=== PATIENT | male | born 1995 | race Two or more races ===

== ENCOUNTER 2020-03-02 13:09 | Outpatient (REF) | payer OTHER, SELFPAY | END 2020-03-02 13:10 | disposition home or self-care (01) | LOC: HO.LAB 13:09 | PROVIDERS: Visit Provider Internal Medicine | DX: Z20.828 Contact with and (suspected) exposure to other viral communicable diseases (principal) | CPT/HCPCS: C9803; U0003 ==

== ENCOUNTER 2021-08-24 12:32 | Outpatient (REF) | payer MEDICAID, SELFPAY ==
[2021-08-24 12:55] LABS: MANUAL DIFF FLAG NO
[2021-08-24 13:18] LABS: Basophils Percent Auto 0.4 % (0-2); Eosinophils Absolute Auto 0.2 X10*3/uL (0.0-0.4); Eosinophils Percent Auto 1.8 % (0-4); Hematocrit 40.1 % (42.0-52.0); Imm Gran Abs Auto 0.06 X10*3/uL (0.00-0.03); Imm Gran Pct Auto 0.6 % (0.0-0.4); Lymphocytes Absolute Auto 2.5 X10*3/uL (1.2-4.9); Mean Corpuscular HGB Conc 32.4 g/dl (31.0-36.0); Mean Corpuscular Hemoglobin 27.9 pg (27.0-33.0); Mean Corpuscular Volume 86.1 fL (80.0-98.0); Mean Platelet Volume 10.1 fL (9.4-12.4); Monocytes Absolute Auto 0.5 X10*3/uL (0.1-1.2); Monocytes Percent Auto 4.7 % (2-11); Neutrophils Absolute Auto 6.7 x10*3/uL (2.0-8.3); Neutrophils Percent Auto 67.5 % (45-73); Platelet Count 228 X10*3/uL (160-400); Red Blood Count 4.66 X10*6/uL (4.60-5.80); White Blood Count 9.9 X10*3/uL (4.8-10.8)
[2021-08-24 13:43] LABS: Alanine Aminotransferase 53 U/L (0-40); Albumin Level 3.8 g/dL (3.5-5.0); Alkaline Phosphatase 55 U/L (39-117); Anion Gap 12 (12-20); Aspartate Amino Transferase 29 U/L (5-37); Bilirubin Total 0.9 mg/dL (0.0-1.0); Blood Urea Nitrogen 9 mg/dL (9-16); Calcium 9.2 mg/dL (8.4-10.2); Carbon Dioxide 28 mmol/L (22-29); Chloride 104 mmol/L (96-108); Cholesterol 145 mg/dL; Estimated Glomerular Filt Rate > 60; Glucose Fasting 92 mg/dL (60-99); HDL Cholesterol 33 mg/dL; LDL Cholesterol Calculated 82 mg/dl; Potassium 4.3 mmol/L (3.3-5.1); Sodium 140 mmol/L (135-145); Total Protein 7.6 g/dL (6.5-8.0); Triglycerides 152 mg/dL
[2021-08-24 13:59] LABS: T4 Thyroxine 7.1 ug/dL (4.5-12.0); Thyroid Stimulating Hormone 1.64 uIU/mL (0.32-4.0)
[2021-08-28 11:11] LABS: Testosterone, Total 38 ng/dL (250-1100)
== END 2021-08-24 12:33 | disposition home or self-care (01) ==
LOC: HO.LAB 12:32
PROVIDERS: PCP Internal Medicine; Visit Provider Internal Medicine
DX: Z00.00 Encounter for general adult medical examination without abnormal findings (principal); R53.83 Other fatigue
CPT/HCPCS: 36415; 80053; 80061; 84403; 84436; 84443; 85025

== ENCOUNTER 2023-02-03 10:48 | Outpatient (AMB) | payer MEDICAID, SELFPAY ==
--- NOTE | 2023-02-03 10:50 | A.OFFVIS_ITS ---
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 02/03/2023-- He presents today for an evaluation of hypogonadism. CoMorbidity - Obesity. He was referred to the urology office by Dr. Constantino. I reviewed the blood work results from 08/24/2021 revealed total testosterone was 38. He does admit to fatigue. Patient states that he is exercising daily for 30 minutes to an hour. He does some cardio treadmill and also weight lifting. He states that he fell few days ago and has not been able to exercise. He denies any erectile dysfunction. IIEF-5 score 22, consistent with no erectile dysfunction.He denies any urinary symptoms. Plan: Ordered blood work including TSH, FSH, Free and total testosterone SHBG Prolactin lipid panel glucose fasting LH and albumin level. Follow-up in 5 weeks. [facility], [facility] Medical History (Updated 02/03/23 @ 11:53 by Izaiah Zavala MD) Eczema Hypogonadism in male Surgical History Hx of tonsillectomy History of appendectomy Family History Father No problems noted. Mother Motor vehicle accident with significant injury No family history of cancer Sister Weight disorder Social History Alcohol intake: current Alcohol intake frequency: holidays/special occasions only Patient Tobacco Use Status: Never used Tobacco Review of Systems Const All systems reviewed & are unremarkable except as noted in HPI and below Reports no additional complaints Eyes Reports no additional complaints ENT Reports no additional complaints Card Denies dyspnea Resp Denies cough and Denies dyspnea GI Reports no additional complaints Musc Reports no additional complaints Skin/Breast Denies rash and Denies unusual bruising Neuro Reports no additional complaints Psych Reports no additional complaints Endo Reports no additional complaints Yasmany/Lymph Reports no additional complaints Aller/Immun Reports no additional complaints Physical Exam Const General: healthy appearing, no acute distress and well developed Orientation/consciousness: patient oriented x3 HEENT Head: Yes normocephalic and Yes atraumatic Eyes Conjunctivae: conjunctivae normal Neck Neck: Yes normal visual inspection Chest Chest palpation & inspection: normal inspection of the chest Resp Effort & Inspection: normal respiratory effort Cardio Rate: regular rate GI Inspection: Yes normal to inspection Skin General skin exam: no rashes or lesions noted Neuro General: patient oriented x3 Extrem General: No pedal edema Psych Appearance: grossly normal Affect: normal affect Assessment & Plan Assessment & Plan (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 Follow-up in 5 weeks. Orders: Orders Lipid Panel Today E29.1 - Testicular hypofunction, E66.8 - Other obesity Prolactin Today E29.1 - Testicular hypofunction, E66.8 - Other obesity Sex Hormone Binding Globulin Today E29.1 - Testicular hypofunction, E66.8 - Other obesity Testosterone, Free/Total Today E29.1 - Testicular hypofunction, E66.8 - Other obesity Follicle Stimulating Hormone Today E29.1 - Testicular hypofunction, E66.8 - Other obesity Albumin Level Today E29.1 - Testicular hypofunction, E66.8 - Other obesity Lutenizing Hormone Today E29.1 - Testicular hypofunction, E66.8 - Other obesity Glucose Fasting Today E29.1 - Testicular hypofunction, E66.8 - Other obesity TSH reflex Free T4 Today E29.1 - Testicular hypofunction, E66.8 - Other obesity Patient Instructions: The patient had an opportunity to ask questions regarding treatment plan. All questions were answered. Imaging, Laboratory studies and physical exam results were discussed and reviewed in detail. No major barriers to understanding were identified. The patient expressed understanding and agreement with the above treatment plan. The patient is aware they should contact our office by phone for worsening of their current condition or the appearance of new symptoms. Compliance is encouraged with any medications and followup testing that is ordered. It is a privilege to be allowed the opportunity to participate in the urologic care of your patient. If you have any questions or concerns regarding treatment for the above conditions please do not hesitate to contact me. The office telephone contact is [phone]. This note is constructed in part using voice recognition software. While every effort has been made to ensure accuracy embalmer assistant errors may have been included. Yours sincerely, Izaiah Zavala MD Coding Level of Care Code New Pt Level 3 (37269) Diagnoses Hypogonadal obesity E66.8 Hypogonadism in male E29.1
== END 2023-02-03 11:55 | disposition home or self-care (01) ==
PROVIDERS: PCP Internal Medicine; Visit Provider Urology
DX: E66.8 Other obesity (principal); E29.1 Testicular hypofunction
CPT/HCPCS: 99203

== ENCOUNTER → 2023-02-03 10:48 | Outpatient (BNVA) | payer MEDICAID, SELFPAY | PROVIDERS: PCP Internal Medicine; Visit Provider Urology | DX: E66.8 Other obesity (principal); E29.1 Testicular hypofunction | CPT/HCPCS: 99202 ==

== ENCOUNTER → 2023-03-09 10:05 | Outpatient (BNVA) | payer MEDICAID, SELFPAY | PROVIDERS: PCP Internal Medicine; Visit Provider Urology ==

== ENCOUNTER 2023-03-21 10:13 | Outpatient (REF) | payer MEDICAID, SELFPAY ==
[2023-03-21 11:20] LABS: Albumin Level 3.8 g/dL (3.5-5.0); Cholesterol 142 mg/dL (<200); Glucose Fasting 134 mg/dL (60-99); HDL Cholesterol 32 mg/dL (>40); LDL Cholesterol Calculated 75 mg/dL (<100); Triglycerides 176 mg/dL (<150)
[2023-03-21 11:35] LABS: TSH reflex Free T4 2.56 uIU/mL (0.32-4.0)
[2023-03-22 08:43] LABS: Lutenizing Hormone 1.4 mIU/mL (1.5-9.3); Prolactin 5.5 ng/mL (2.0-18.0); Sex Hormone Binding Globulin 7 nmol/L (10-50)
[2023-03-26 13:18] LABS: Testosterone, Free 6.9 pg/mL (35.0-155.0); Testosterone, Total 23 ng/dL (250-1100)
== END 2023-03-21 10:14 | disposition home or self-care (01) ==
LOC: HO.LAB 10:13
PROVIDERS: PCP Internal Medicine; Visit Provider Urology
DX: E66.8 Other obesity (principal); E29.1 Testicular hypofunction
CPT/HCPCS: 36415; 80061; 82040; 82947; 83001; 83002; 84146; 84270; 84402; 84403; 84443

== ENCOUNTER 2024-01-30 10:56 | Emergency (ER) | payer MEDICAID, SELFPAY ==
[2024-01-30 12:03] VITALS: BP 130/57; PULSE 106; RESP 18; TEMP 36.5; O2SAT 93; BMI 49.4
--- NOTE | 2024-01-30 12:03 | ED_ITS ---
[facility] - General Adult General Chief complaint: Dizziness Stated complaint: Dizziness Time Seen by Provider: 01/30/24 16:18 Source: patient Mode of arrival: ambulatory History of Present Illness HPI narrative: This is a 28-year-old man with a past medical history of hypogonadism presents for evaluation of dizziness and nausea. Patient reports that he woke up this morning and felt lightheaded. Patient reports no syncope. Patient reports that his lightheadedness is worse when he stands up. He states associated nausea without vomiting. He states no chest pain or dyspnea. He states no fevers. He states no urinary symptoms or changes in bowel habits. Patient states decreased appetite, but states being able to eat and drink without difficulty. He states no head trauma. He states no headache or neck pain. He states no extremity paresthesias. He states no vision loss. He states no speech changes or hearing changes. He states no urinary symptoms. Related Data Home Medications ?Medication ?Instructions ?Recorded ?Confirmed ketoconazole 2 % shampoo topical 3XW 12/07/22 triamcinolone acetonide 0.1 % 1 appl topical BID 12/07/22 topical cream Allergies Allergy/AdvReac Type Severity Reaction Status Date / Time No Known Allergies Allergy Verified 01/30/24 12:04 Review of Systems 2 Review of Systems: ROS as per [facility] Past Medical History Medical History (Updated 01/30/24 @ 19:18 by Parish Serna MD) Eczema Hypogonadism in male Surgical History Hx of tonsillectomy History of appendectomy Family History Family History Father No problems noted. Mother Motor vehicle accident with significant injury No family history of cancer Sister Weight disorder Social History Social History Alcohol intake: current Alcohol intake frequency: holidays/special occasions only Patient Tobacco Use Status: Never used Tobacco Smoked in Last 30 Days: No Use of substances other than those prescribed or required for medical reasons: No Advance Directives: No Advance Directives Information Provided: Yes Physical Exam ED Vital Signs: Vital Signs - 24 hr 01/30/24 12:03 01/30/24 16:00 01/30/24 18:00 Temperature 97.7 F Pulse Rate 106 H 108 H 100 Respiratory Rate 18 16 16 Blood Pressure 130/57 L 110/68 117/71 Pulse Oximetry 93 94 96 Oxygen Delivery Method Room Air Room Air Room Air BMI result Body Mass Index 49.4 Gen: NAD, AOx3 HEENT: NCAT, EOMI, normal conjunctiva CV: RRR Pulm: CTAB, no increased work of breathing GI: Soft, NTND, no rebound, guarding or rigidity Neuro: GCS 15, CN 2-12 intact, no dysmetria, no dysdiadochokinesia, 5/5 strength in bilateral upper and lower extremities, sensation intact to light touch in bilateral upper and lower extremities Course Course Course Narrative: This is a rapid medical exam performed by Maverick Kahn NP: Additional HPI, ROS, PE not included below will be deferred to primary provider. Patient is a 28-year-old male presenting with dizziness and nausea since this morning, worse with head movements. Plan: EKG, viral serology Medications Administered Discontinued Medications Generic Name Dose Route Start Last Admin Trade Name Freq PRN Reason Stop Dose Admin Sodium Chloride 1,000 mls @ 999 mls/hr 01/30/24 16:45 01/30/24 17:39 Ns IV 01/30/24 17:45 999 mls/hr .Q1H1M MARLY Administration Ondansetron HCl 4 mg 01/30/24 16:32 01/30/24 17:40 Ondansetron Hcl 4 Mg/2 Ml Vial IVPUSH 01/30/24 16:33 4 mg ONCE ONE Administration Medical Decision Making Medical Decision Making MDM Narrative: Differential diagnosis includes, but is not limited to presyncope, arrhythmia, dehydration, acute kidney injury, electrolyte abnormality. Patient is afebrile and hemodynamically stable on room air. Exam is benign and reassuring. NIHSS 0. I reviewed interpreted patient's labs and EKG as below. There are no concerning electrocardiographic morphology is to suggest underlying conduction abnormality. LEs, there is low clinical suspicion for arrhythmia. Patient has treat supportively here emergency room with IV fluids and Zofran. On re-examination, patient is well-appearing and in no acute distress. ?I discussed the patient's abnormal blood work and need for close outpatient follow up. Patient states symptoms have resolved. ?There is no indication for further emergent evaluation in this otherwise well-appearing patient as above. ?Patient is provided written and verbal instructions, educational materials, recommendations for outpatient follow-up, strict return precautions and teach back is performed. ?Patient states understanding and agreement with plan of care. ?Patient is discharged home in stable and improved condition. Admission/Observation Consideration of admission/observation: Escalation of care including admission/observation considered Lab Data MDM Lab Attestation statement: I reviewed the patient's lab results. I independently reviewed and interpreted the patient's CBC, metabolic panel and viral testing. CBC demonstrates chronic stable anemia with hemoglobin 12.9 (previous 13.0), metabolic panel is notable for mild transaminitis with AST of 106 and ALT of 132 (previous ALT 53). Patient has negative for COVID-19, influenza and RSV. 01/30/24 12:13 01/30/24 12:13 Labs: Lab Results 01/30/24 Range/Units 12:13 WBC 10.7 (4.8-10.8) X10*3/uL RBC 4.71 (4.60-5.80) X10*6/uL Hgb 12.9 L (14.0-18.0) g/dl Hct 39.4 L (42.0-52.0) % MCV 83.7 (80.0-98.0) fL MCH 27.4 (27.0-33.0) pg MCHC 32.7 (31.0-36.0) g/dl RDW 15.4 (11.0-16.0) % Plt Count 199 (160-400) X10*3/uL MPV 9.8 (9.4-12.4) fL Immature Gran % (Auto) 0.9 H (0.0-0.4) % Neut % (Auto) 74.0 H (45-73) % Lymph % (Auto) 18.0 L (20-40) % Castro % (Auto) 4.7 (2-11) % Eos % (Auto) 2.1 (0-4) % Baso % (Auto) 0.3 (0-2) % Lymph # (Auto) 1.9 (1.2-4.9) X10*3/uL Castro # (Auto) 0.5 (0.1-1.2) X10*3/uL Eos # (Auto) 0.2 (0.0-0.4) X10*3/uL Baso # (Auto) 0.0 (0.0-0.2) X10*3/uL Abs Immat Gran (auto) 0.10 H (0.00-0.03) X10*3/uL Absolute Neuts (auto) 7.9 (2.0-8.3) x10*3/uL Absolute Nucleated RBC 0.000 (0.0-0.012) X10*3/uL Nucleated RBC % (auto) 0.0 (0.0-0.2) /100WBC Sodium 139 (135-145) mmol/L Potassium 4.2 (3.3-5.1) mmol/L Chloride 102 (96-108) mmol/L Carbon Dioxide 24 (22-29) mmol/L Anion Gap 17 (12-20) BUN 10 (9-16) mg/dL Creatinine 0.76 (0.5-1.4) mg/dL Estim Creat Clear Calc 177.9 Estimated GFR > 60 Random Glucose 181 H (60-115) mg/dL Calcium 9.6 (8.4-10.2) mg/dL Magnesium 1.8 (1.6-2.6) mg/dL Total Bilirubin 0.8 (0.0-1.0) mg/dL AST 106 H (5-37) U/L ALT 132 H (0-40) U/L Alkaline Phosphatase 63 (39-117) U/L Total Protein 8.4 H (6.5-8.0) g/dL Albumin 3.8 (3.5-5.0) g/dL Influenza Type A (PCR) NEGATIVE (Negative) Influenza Type B (PCR) NEGATIVE (Negative) RSV RNA Qual (PCR) NEGATIVE (Negative) SARS-CoV-2 RNA (RT-PCR) NEGATIVE (Negative) Independent Interpretation I performed an independent interpretation of an: EKG Interpretation: I independently reviewed and interpreted the patient's EKG, which demonstrates a sinus tachycardia at 106 beats per minute, NC 124, QRS 96, QTC 470, no Brugada morphology, no epsilon wave, no dagger-like Q-waves, no delta wave, no STEMI Discharge Plan Discharge Clinical Impression: Pre-syncope Patient Disposition: Home, Self-Care Instructions: Near Syncope (ED) Additional Instructions: You were seen and evaluated in the emergency room. Your vital signs initially showed mildly elevated heart rate and blood pressure, but this resolved prior to your discharge. Your blood work was notable for mildly elevated glucose of 181, mildly elevated liver enzymes with an AST of 106 and an ALT of 132. Your EKG was normal. You tested negative for COVID-19, influenza and RSV. You are safe to be discharged from the emergency room and continue to follow up with your primary care doctors. Please call your primary care doctor tomorrow to schedule a follow-up appointment in the next 1-2 weeks. Return to the emergency room with any new or concerning symptoms. Prescriptions: No Action ketoconazole 2 % shampoo topical 3XW triamcinolone acetonide 0.1 % cream 1 appl topical BID Print Language: Lao
--- NOTE | 2024-01-30 12:04 | ECG_ITS ---
Test Reason : dizziness Blood Pressure : / mmHG Vent. Rate : 106 BPM Atrial Rate : 106 BPM P-R Int : 124 ms QRS Dur : 096 ms QT Int : 354 ms P-R-T Axes : 039 -05 028 degrees QTc Int : 470 ms Sinus tachycardia with Premature atrial complexes Minimal voltage criteria for LVH, may be normal variant ( R in aVL ) Borderline ECG When compared with ECG of 26-AUG-2015 04:00, Premature atrial complexes are now Present Referred By: Mildred Kahn Electronically Signed By:LUISANA DAVALOS MD
[2024-01-30 12:19] LABS: MANUAL DIFF FLAG NO
[2024-01-30 12:23] LABS: Basophils Percent Auto 0.3 % (0-2); Eosinophils Absolute Auto 0.2 X10*3/uL (0.0-0.4); Eosinophils Percent Auto 2.1 % (0-4); Hematocrit 39.4 % (42.0-52.0); Hemoglobin 12.9 g/dl (14.0-18.0); Imm Gran Pct Auto 0.9 % (0.0-0.4); Lymphocytes Absolute Auto 1.9 X10*3/uL (1.2-4.9); Mean Corpuscular HGB Conc 32.7 g/dl (31.0-36.0); Mean Corpuscular Hemoglobin 27.4 pg (27.0-33.0); Mean Corpuscular Volume 83.7 fL (80.0-98.0); Mean Platelet Volume 9.8 fL (9.4-12.4); Monocytes Absolute Auto 0.5 X10*3/uL (0.1-1.2); Monocytes Percent Auto 4.7 % (2-11); Neutrophils Absolute Auto 7.9 x10*3/uL (2.0-8.3); Platelet Count 199 X10*3/uL (160-400); Red Blood Count 4.71 X10*6/uL (4.60-5.80); Red Cell Distribution Width 15.4 % (11.0-16.0); White Blood Count 10.7 X10*3/uL (4.8-10.8)
[2024-01-30 12:40] LABS: Alanine Aminotransferase 132 U/L (0-40); Albumin Level 3.8 g/dL (3.5-5.0); Alkaline Phosphatase 63 U/L (39-117); Anion Gap 17 (12-20); Aspartate Amino Transferase 106 U/L (5-37); Bilirubin Total 0.8 mg/dL (0.0-1.0); Blood Urea Nitrogen 10 mg/dL (9-16); Calcium 9.6 mg/dL (8.4-10.2); Carbon Dioxide 24 mmol/L (22-29); Chloride 102 mmol/L (96-108); Creatinine Clr Calc Pharmacy 177.9; Estimated Glomerular Filt Rate > 60; Glucose Random 181 mg/dL (60-115); Magnesium 1.8 mg/dL (1.6-2.6); Potassium 4.2 mmol/L (3.3-5.1); Sodium 139 mmol/L (135-145); Total Protein 8.4 g/dL (6.5-8.0)
[2024-01-30 13:05] LABS: Influenza A PCR NEGATIVE (Negative); Influenza B PCR NEGATIVE (Negative); Resp Syncy Virus RNA Qual PCR NEGATIVE (Negative); SARS COV2 PCR INHOUSE NEGATIVE (Negative)
[2024-01-30 16:00] VITALS: BP 110/68; PULSE 108; RESP 16; O2SAT 94
[2024-01-30] MEDS: 0.9 % Sodium Chloride 1,000 ML 999 ML IV (17:39)
[2024-01-30] MEDS: ondansetron HCL 4 MG/2 ML VIAL IVPUSH (17:40)
[2024-01-30 18:00] VITALS: BP 117/71; PULSE 100; RESP 16; O2SAT 96
[2024-01-30 19:35] VITALS: BP 111/63; PULSE 99; RESP 20; TEMP 36.6; O2SAT 97
== END 2024-01-30 19:35 | disposition home or self-care (01) ==
PROVIDERS: Registered Nurse Emergency; Emergency Provider Emergency Medicine; PCP Internal Medicine
DX: R55 Syncope and collapse (principal); R42 Dizziness and giddiness; R00.0 Tachycardia, unspecified; Z79.899 Other long term (current) drug therapy; Z03.818 Encounter for observation for suspected exposure to other biological agents ruled out
CPT/HCPCS: 0241U; 80053; 83735; 85025; 93005; 96374; 99284; J2405

== ENCOUNTER → 2024-01-30 12:04 | Outpatient (BNV) | payer MEDICAID, SELFPAY | PROVIDERS: Emergency Provider Emergency Medicine; PCP Internal Medicine; Visit Provider Internal Medicine Cardiovascular Disease | DX: R42 Dizziness and giddiness (principal); R00.0 Tachycardia, unspecified; R94.31 Abnormal electrocardiogram [ECG] [EKG] | CPT/HCPCS: 93010 ==

== ENCOUNTER 2025-01-10 13:43 | Outpatient (REF) | payer MEDICAID, SELFPAY ==
--- OUTSIDE RECORDS SUMMARY | 2025-01-10 13:00 | XMS_ITS | Encounter Summary ---
Author Organization [employer] Address [address] [facility] [address] [place] [address] Care Team Providers Care Entry Analyst Name Role Phone Jazzmine Dockery MD Primary Care Provider [phone] Reason for Visit * Reason Comments new pt Encounter Details Date Type Department Care Team (Late st Contact Info) Description 01/10/2025 1:00 PM EDT Office Visit [facility] MEDICINE [address] [place] [address] Jazzmine Dockery MD [address] [place] [address] Class 3 severe obesity without serious comorbidity with body mass index (BMI) of 45.0 to 49.9 in adult, unspecified obesity type (HCC) (Primary Dx); Dietary counseling; Exercise counseling; Encounter for immunization; Chronic tension-type headache, not intractable Social History Tobacco Use Types Packs/Day Years Used Date Smoking Tobacco: Never Smokeless Tobacco: Never Tobacco Cessation:Counseling Given: Not Answered Alcohol Use Standard Drinks/Week Comments Never 0 (1 standard drink = 0.6 oz pur e alcohol) Depression Answer Date Recorded Patient Health Questionnaire-9 Score 4 01/10/2025 Patient Health Questionnaire-9 Score 4 01/10/2025 Last PHQ-9: Questionnaire Data Not on file 1 Housing Stability Answer Date Recorded What is your housing situation today? I have bharti mena 01/01/[address] you li ve. Do you have problems with any of the following? None of the above 01/01/2025 Food Insecurity Answer Date Recorded Within the past 12 months, y ou worried that your food would run out before you got money to buy more: Never True 01/01/2025 Within the past 12 months,th e food you bought just didn't last and you didn't have enough money to get more: Never True 10/2024 Transportation Answer Date Recorded In the past 12 months, has l ack of transportation kept you from medical appts, meetings, work or from getting things needed for daily living? No 01/01/2025 Intimate Partner Violence Answer Date R ecorded Within the last year, have y ou been afraid of your partner or ex-partner? 2 01/10/2025 Within the last year, have y ou been humiliated or emotionally abused in other ways by your partner or ex-partner? 2 Within the last year, have y ou been kicked, hit, slapped, or otherwise physically hurt by your partner or ex-partner? 2 01/10/2025 Within the last year, have y ou been raped or forced to have any kind of sexual activity by your partner or ex-partner? 2 01/10/2025 Utilities Answer Date Recorded In the past 12 months, has t he [employer], gas, oil or water company threatened to shut off services in your home? No 01/01/2025 Depression Answer Date Recorded Patient Health Questionnaire-2 Score 0 01/10/2025 Internet Access Answer Date Recorded Internet Access Q1 Yes 01/01/2025 Internet Access Q2 Not on file 01/01/2025 Sex and Gender Information Value Date Recorded Sex Assigned at Male 12/13/2024 9:24 AM EDT Legal Sex Male 11:12 AM EDT Gender Identity Male 12/13/2024 9:24 AM EDT Sexual Orientation Choose not to disclose 2024 9:24 AM EDT documented as of this encounter Last Filed Vital Signs Vital Sign Reading Time Taken Comments Blood Pressure 118/72 01/10/2025 1:03 PM EDT Pulse 68 01/10/2025 1:03 PM EDT Temperature 37.1 C (98.7 F) 01/10/2025 1:03 PM EDT Respiratory Rate 20 01/10/2025 1:03 PM EDT Oxygen Saturation - - Inhaled Oxygen Concentration - - Weight 130 kg (285 lb 12.8 oz) 01/10/2025 1:03 P M EDT Height 162.6 cm (5' 4 ) 01/10/2025 1:03 PM EDT Body Mass Index 49.06 01/10/2025 1:03 PM EDT documented in this encounter Functional Status * Over the past 2 weeks, how often have you been bothered by any of the following problems? Question Answer Date of Assessment Author Patient Health Questionnaire -2 Score 0 01/10/2025 1:05 PM EDT Jennifer Conde MA * Little interest or pleasure in doing things Answer Date of Assessment Author Not at all 01/10/2025 1:05 PM EDT Jennifer Conde MA * Feeling down, depressed, or hopeless Answer Date of Assessment Author Not at all 01/10/2025 1:05 PM FERNYT Jennifer Conde MA * Trouble falling or staying asleep, or sleeping too much Answer Date of Assessment Author Several days 01/10/2025 1:05 PM FERNYT Jennifer Conde MA * Feeling tired or having little energy Answer Date of Assessment Author Several days 01/10/2025 1:05 PM FERNYT Jennifer Conde MA * Poor appetite or overeating Answer Date of Assessment Author Several days 01/10/2025 1:05 PM Jennifer Caruso MA * Feeling bad about yourself - or that you are a failure or have let yourself or your family down Answer Date of Assessment Author Not at all 01/10/2025 1:05 PM Jennifer Caruso MA * Trouble concentrating on things, such as reading the newspaper or watching television Answer Date of Assessment Author Several days 01/10/2025 1:05 PM Jennifer Caruso MA * Moving or speaking so slowly that other people could have noticed? Or the opposite - being so fidgety or restless that you have been moving around a lot more than usual. Answer Date of Assessment Author Not at all 01/10/2025 1:05 PM Jennifer Caruso MA * Thoughts that you would be better off or hurting yourself in some way Answer Date of Assessment Author Not at all 01/10/2025 1:05 PM Jennifer Caruso MA * Patient Health Questionnaire-9 Score Answer Date of Assessment Author 4 01/10/2025 1:05 PM Jennifer Caruso MA * How difficult have these problems made it for you to do your work, take care of things at home, or get along with other people? Answer Date of Assessment Author Not difficult at all 01/10/2025 1:05 PM EDT Jennifer Almonte MA * Over the last 2 weeks, how often have you been bothered by any of the following problems? Question Answer Date of Assessment Author Feeling nervous, anxious, or on edge 0 01/10/2025 1:05 PM EDT Jennifer Conde MA Not being able to stop or co ntrol worrying 1 01/10/2025 1:05 PM EDT Jennifer Conde MA Worrying too much about diff erent things 1 01/10/2025 1:05 PM EDT Jennifer Conde MA Trouble relaxing 0 01/10/2025 1:05 PM EDT Jennifer Willis MA Being so restless that it is hard to sit still 0 01/10/2025 1:05 PM EDT Jennifer Conde MA Becoming easily annoyed or irritable 0 01/10/2025 1:05 PM EDT Jennifer Conde MA Feeling afraid as if somethi ng awful might happen 0 01/10/2025 1:05 PM EDT Jennifer Conde MA GOPI-7 Total Score 2 01/10/2025 1:05 PM FERNYT Jennifer Conde MA documented as of this encounter Progress Notes * Jazzmine Dockery MD - 01/10/2025 1:00 PM EDT SUBJECTIVE: Delroy Otero is a 29 y.o. male who presents for chronic disease management. Denies recent illness, ER visit, or hospitalization. Accompanied by Acute Concerns: Headaches - History of headaches severe enough to wake from sleep - Able to return to sleep after taking loratadine, but only partially - Sometimes experiences difficulty focusing vision during headaches, especially while working - No congestion or post-nasal drip associated with headaches - No changes in hearing during headaches - No history of chronic medical issues diagnosed by previous doctors related to headaches - No prior lab work or eye exam specifically for headaches Chronic Conditions and Plans: Asthma - History of asthma as a child, symptoms have abated since then - Unable to recall last use of asthma medication or inhaler Psoriasis/Eczema - Reports skin rash, believes it to be psoriasis - Rash present on knees and a large patch on back - Also experiences bumps related to hair follicles, sometimes around ears and back of neck - Uses CeraVe moisturizer for skin symptoms - No prior allergy testing Fatigue - Reports feeling tired more often - Sometimes wakes up at night and falls asleep while sitting - Feels tired upon waking in the morning Low Testosterone Concern - Previous physician indicated possible low testosterone based on blood work performed months ago - Unable to obtain records due to missed appointment and difficulty with scheduling during a severeweather event - Uncertain about symptoms of low testosterone, but reports increased fatigue - No reported difficulty achieving or maintaining erection - No reported development of breast tissue - Uncertain about changes in anger or irritability Surgical History Relevant to Present Illness - Appendectomy performed at age 16-17 years - [place] teeth removal at age 28 years Unemployed currently Sleeping ok most of the time Misc - Occasional marijuana use, obtained from dispensary - Denies tobacco use, vaping, chewing, or use of synthetic drugs - Family history of carpal tunnel syndrome Patient Active Problem List Diagnosis Date Noted Class 3 severe obesity without serious comorbidity with body mass index (BMI) of 45.0 to 49.9 in adult (HCC) 01/10/2025 Chronic tension-type headache, not intractable 01/10/2025 Surgical History[1] Social History Social History Narrative Not on file Review of Systems Constitutional: Negative. HENT: Negative. Respiratory: Positive for shortness of breath. Cardiovascular: Negative. Gastrointestinal: Negative. Musculoskeletal: Negative. Skin: Positive for rash. OBJECTIVE: Vitals: 01/10/25 1303 BP: 118/72 BP Location: Left arm Patient Position: Sitting BP Cuff Size: Large adult Pulse: 68 Resp: 20 Temp: 98.7 ??F (37.1 ??C) TempSrc: Oral Weight: 285 lb 12.8 oz (130 kg) Height: 5' 4 (1.626 m) Physical Exam Vitals and nursing note reviewed. Constitutional: Appearance: Normal appearance. He is normal weight. HENT: Head: Normocephalic and atraumatic. Right Ear: Tympanic membrane, ear canal and external ear normal. Left Ear: Tympanic membrane, ear canal and external ear normal. Nose: Nose normal. Mouth/Throat: Mouth: Mucous membranes are moist. Pharynx: Oropharynx is clear. Eyes: Extraocular Movements: Extraocular movements intact. Conjunctiva/sclera: Conjunctivae normal. Pupils: Pupils are equal, round, and reactive to light. Cardiovascular: Rate and Rhythm: Normal rate and regular rhythm. Pulses: Normal pulses. Heart sounds: Normal heart sounds. Pulmonary: Effort: Pulmonary effort is normal. Breath sounds: Normal breath sounds. Musculoskeletal: General: Normal range of motion. Cervical back: Normal range of motion and neck supple. Skin: General: Skin is warm and dry. Capillary Refill: Capillary refill takes less than 2 seconds. Findings: Rash present. Comments: Efrem derm around nose, ears, back of neck Raised hyperpgimented patches on elbows Mild folliculitis on arms Neurological: General: No focal deficit present. Mental Status: He is alert and oriented to person, place, and time. Psychiatric: Mood and Affect: Mood normal. Behavior: Behavior normal. ASSESSMENT/PLAN Assessment & Plan Class 3 severe obesity without serious comorbidity with body mass index (BMI) of 45.0 to 49.9 in adult, unspecified obesity type (HCC): - Ordered blood work including cholesterol, kidney, and liver function. Headaches: - Headaches with associated visual symptoms, not accompanied by congestion or postnasal drip. Further investigation warranted. - Ordered blood work. Recommended monitoring for any new or worsening symptoms. Psoriasis/eczema: - Psoriasis/eczema with large patch on back and additional areas affected, including knees and around hair follicles. - Prescribed triamcinolone cream for affected areas. Recommended continued use of CeraVe moisturizer on whole body. Advised use of triamcinolone on areas with skin patches and around hair follicles. Tetanus immunization: - Tetanus immunization not up to date. - Administered tetanus booster. Low testosterone (possible): - Possible low testosterone based on previous blood work and symptoms of fatigue. No definitive diagnosis made. - Ordered blood work to further evaluate testosterone levels. Prescription - Triamcinolone topical cream: apply to psoriatic/eczema patches on back, neck, around ears in conjunction with CeraVe moisturizer - Tetanus booster vaccine administered during visit Problem List Items Addressed This Visit Class 3 severe obesity without serious comorbidity with body mass index (BMI) of 45.0 to 49.9 in adult (HCC) - Primary Relevant Orders CBC auto differential Lipid Panel, Standard Comprehensive Metabolic Panel TSH W/Reflex to FT4 Chronic tension-type headache, not intractable Other Visit Diagnoses Dietary counseling Exercise counseling Encounter for immunization Relevant Orders TDAP VACCINE 7 yrs + (Completed) Follow Up: 6 months or sooner prn Allergies[2] Current Medications[3] Arabic Translation: Patient is bilingual and declines translation services [1] History reviewed. No pertinent surgical history. [2] No Known Allergies [3] Current Outpatient Medications: loratadine (Claritin) 10 MG tablet, Take 1 tablet (10 mg) by mouth Once per day., Disp: 20 tablet, Rfl: 0 triamcinolone (Kenalog) 0.1 % cream, Apply topically at bedtime., Disp: 80 g, Rfl: 3 documented in this encounter Plan of Treatment Scheduled Orders Name Type Priority Associated Diagnoses Orde r Schedule CBC auto differential Lab Routine Class 3 severe obesity without serious comorbidity with body mass index (BMI) of 45.0 to 49.9 in adult, unspecified obesity type (HCC) Expected: 01/10/2025 (Approximate), Expires: 01/10/2026 Lipid Panel, Standard Lab Routine Class 3 severe obesity without serious comorbidity with body mass index (BMI) of 45.0 to 49.9 in adult, unspecified obesity type (HCC) Expected: 01/10/2025 (Approximate), Expires: 01/10/2026 Comprehensive Metabolic Panel Lab Routine Class 3 severe obesity without serious comorbidity with body mass index (BMI) of 45.0 to 49.9 in adult, unspecified obesity type (HCC) Expected: 01/10/2025 (Approximate), Expires: 01/10/2026 TSH W/Reflex to FT4 Lab Routine Class 3 severe obesity without serious comorbidity with body mass index (BMI) of 45.0 to 49.9 in adult, unspecified obesity type (HCC) Expected: 01/10/2025 (Approximate), Expires: 01/10/2026 documented as of this encounter Visit Diagnoses Diagnosis Class 3 severe obesity without serious comorbidity with body mass index (BMI) of 45.0 to 49.9 in adult, unspecified obesity type (HCC)- Primary Dietary counseling Dietary surveillance and counseling Exercise counseling Encounter for immunization Chronic tension-type headache, not intractable Chronic tension type headache documented in this encounter Additional Health Concerns Assessment Noted Time PHQ-9 Depression Total Score: 4 01/11/20 1:05 PM EDT documented as of this encounter Care Teams Entry Analyst Relationship Specialty Start Date End Date Jazzmine Dockery MD [address] [place] [address] PCP - General Family Medicine 01/10/25 documented as of this encounter
[2025-01-10 16:07] LABS: MANUAL DIFF FLAG NO
--- OUTSIDE RECORDS SUMMARY | 2025-01-10 16:10 | XMS_ITS | Encounter Summary ---
Author Organization [facility] Address [address] [place] [address] Phone Care Team Providers Care Flap Maker Name Role Phone Jef Nicole MD Primary Care Provider [phone] Encounter Details Date Type Department Care Team (Late st Contact Info) Description 11/10/2016 Conversion Encounter [facility] [place] [address] [place] [address] Social History Tobacco Use Types Packs/Day Years Used Date Smoking Tobacco: Never Comments:Never smoker Sex and Gender Information Value Date Recorded Sex Assigned at Not on file Legal Sex Male 5:09 PM EDT Gender Identity Not on file Sexual Orientation Not on file documented as of this encounter Plan of Treatment Not on file documented as of this encounter Visit Diagnoses Not on filedocumented in this encounter Care Teams Flap Maker Relationship Specialty Start Date End Date Jef Nicole MD [address] [place] [address] PCP - General 11/04/16 06/14/22 documented as of this encounter
--- OUTSIDE RECORDS SUMMARY | 2025-01-10 16:10 | XMS_ITS | Encounter Summary ---
Author Organization [facility] Address [address] [place] [phone] Phone Care Team Providers Care Office Manager Receptionist Name Role Phone Jef Nicole MD Primary Care Provider [phone] Encounter Details Date Type Department Care Team (Late st Contact Info) Description 01/15/2016 Documentation EM Family Medicine [address] [place] [address] Family Medicine, Physician [address] [place], [place] [id number] Social History Tobacco Use Types Packs/Day Years [...] on filedocumented in this encounter Care Teams Office Manager Receptionist Relationship Specialty Start Date End Date Jef Nicole MD [address] [place] [address] ASHELY Ortiz [address] PCP - General 11/04/16 06/14/22 documented as of this encounter
--- OUTSIDE RECORDS SUMMARY | 2025-01-10 16:10 | XMS_ITS | Encounter Summary ---
Author Organization [facility] Address [address] [place] [phone] Phone Care Team Providers Care Chief Yeoman Name Role Phone Jef Nicole MD Primary Care Provider [phone] Encounter Details Date Type Department Care Team (Late st Contact Info) Description 03/05/2010 Documentation EM Family Medicine [address] [place] [address] Family Medicine, Physician [address] [place], [place] [id number] Social History Tobacco Use Types Packs/Day Years Used Date Smoking Tobacco: Never Assessed Sex and Gender Information Value Date Recorded Sex Assigned at Not on file Legal Sex Male 5:09 PM EDT Gender Identity Not on file Sexual Orientation Not on file documented as of this encounter Plan of Treatment Not on file documented as of this encounter Visit Diagnoses Not on filedocumented in this encounter Care Teams Chief Yeoman Relationship Specialty Start Date End Date Jef Nicole MD [address] [place] [address] [place]HE[place] Ortiz [address] PCP - General 11/04/16 06/14/22 documented as of this encounter
--- OUTSIDE RECORDS SUMMARY | 2025-01-10 16:11 | XMS_ITS | Encounter Summary ---
Author Organization [employer] Address [address] [place] [address] Care Team Providers Care School Commissioner Name Role Phone Unavailable Primary Care Provider Unavailabl e Reason for Visit * Reason Onset Date Comments chart prep 01/09/2025 Encounter Details Date Type Department Care Team (Late st Contact Info) Description 01/09/2025 Telephone [facility] MEDICINE [address] [place] [address] Jazzmine Dockery MD [address] [place] [address] chart prep Social History Tobacco Use Types Packs/Day Years Used Date Smoking Tobacco: Never Assessed Depression Answer Date Recorded Patient Health Questionnaire-9 Score 4 01/10/2025 Patient Health Questionnaire-9 Score 4 01/10/2025 Last PHQ-9: Questionnaire Data Not on file 1 Housing Stability Answer Date Recorded What is your housing situation today? I have bhartiluciana mena 01/01/[address] you [...] the past 12 months, has t he [employer], gas, oil or water [employer] threatened to shut off services in your [...] AM EDT documented as of this encounter Miscellaneous Notes * Telephone Encounter - Jennifer Conde MA - 01/09/2025 10:51 AM EDT Chart Prep Labs: not applicable Images: not applicable Referrals: not applicable Vaccines due: Covid, Flu, and DTAP Screenings: not applicable Overdue care gaps: SBIRT, PHQ-9, GOPI-7, Disability screen, and Tobacco documented in this encounter Plan of Treatment Not on file documented as of this encounter Visit Diagnoses Not on filedocumented in this encounter
--- OUTSIDE RECORDS SUMMARY | 2025-01-10 16:11 | XMS_ITS | Clinical Summary ---
Author Organization [employer] Address [address] [place] [address] Care Team Providers Care Wood Boatbuilder Apprentice Name Role Phone Jazzmine Dockery MD Primary Care Provider [phone] Allergies No known active allergies Medications loratadine (Claritin) 10 MG tabletIndicatio ns:Viral syndrome Take 1 tablet (10 mg) by mouth Once per day. 20 tablet 5 03/13/20 25 Active triamcinolone (Kenalog) 0.1 % cream Apply topically at bedtime. 80 g 3 5 Active acetaminophen (Tylenol Extra Strength) 500 MG tabletIndicatio ns:Viral syndrome Take 2 tablets (1,000 mg) by mouth every 8 (eight) hours if needed for moderate pain or headaches for up to 10 days. 30 tablet 5 12/24/19 25 Active Problems Problem Noted Date Diagnosed Date Class 3 severe obesity witho ut serious comorbidity with body mass index (BMI) of 45.0 to 49.9 in adult 01/10/2025 Chronic tension-type headache, not intractable 1 Resolved Problems Problem Noted Date Diagnosed Date Resolved Date Viral syndrome 12/13/2024 01/10/2025 Assessment & Plan (12/13/2024 11:50 AM EDT): I advised to drink plenty of fluids and rest I will prescribe for patient acetaminophen and loratadine for symptoms Return back if symptoms are persistent or worse Encounters Date Type Department Care Team Description 01/10/2025 1:00 PM EDT Office Visit [facility] [address] [place] [address] Jazzmine Dockery MD Class 3 severe obesity without serious comorbidity with body mass index (BMI) of 45.0 to 49.9 in adult, unspecified obesity type (HCC) (Primary Dx); Dietary counseling; Exercise counseling; Encounter for immunization; Chronic tension-type headache, not intractable 01/10/2025 Travel 01/09/2025 Travel 01/09/2025 Telephone [facility] [address] [place] [address] Jazzmine Dockery MD chart prep 01/01/2025 Patient Outreach [facility] [address], [place] [phone] Jazzmine Dockery MD 12/13/2024 11:00 AM EDT Office Visit [facility] [address], [place] [phone] Stephy Kowalski MD Viral syndrome (Primary Dx) 12/13/2024 Travel 10/24/2024 Telephone [facility] [address], [place] [phone] Sven Woody MD from Last 3 Months Immunizations Immunization Administration Dates Next Due Tdap 01/10/2025 Social History Tobacco Use Types Packs/Day Years [...] the past 12 months, has t he electric, gas, oil or water company threatened to [...] not to disclose 2024 9:24 AM EDT Last Filed Vital Signs Vital Sign Reading Time Taken Comments Blood Pressure 118/72 01/10/2025 1:03 PM EDT Pulse 68 01/10/2025 1:03 PM EDT Temperature 37.1 C (98.7 F) 01/10/2025 1:03 PM EDT Respiratory Rate 20 01/10/2025 1:03 PM EDT Oxygen Saturation 93% 12/13/2024 10:12 AM EDT Inhaled Oxygen Concentration - - Weight 130 kg (285 lb 12.8 oz) 01/10/2025 1:03 P M EDT Height 162.6 cm (5' 4 ) 01/10/2025 1:03 PM EDT Body Mass Index 49.06 01/10/2025 1:03 PM EDT Plan of Treatment Health Maintenance Due Date Last Done Comments HIV Screening 1994 Lipid Panel 1994 Family Planning (PISQ) 2009 Hepatitis C Screening 2012 SDOH Screening 01/01/2026 01/01/2025 Disability Screening 01/09/2026 01/09/2025 Alcohol/Substance Use Screening 01/10/2026 01/10/2025 Depression Screening 01/10/2026 01/10/2025, 01/11/20 25 Tobacco Screening 01/10/2026 01/10/2025 DTaP/Tdap/Td Vaccines (8 - Td or Tdap) 01/10/2035 01/10/2025, 06/28/2007, 06/01/1999, Additional history exists Zoster Vaccines (1 of 2) 2044 RSV Patients and Patients Aged 60 years or older (1 - 1-dose 75+ series) 2069 Hepatitis B Vaccines Completed 06/25/1995, 01/24/1995, 1994 HIB Vaccines Completed 07/24/1996, 05/27, 04/26/1995, Additional history exists IPV Vaccines Completed 06/01/1999, 05/27, 04/26/1995, Additional history exists HPV Vaccines Completed 01/06/2011, 08/25, 07/05/2010 Meningococcal Vaccine Aged Out 03/05/2015, 008 No longer eligible based on patient's age to complete this topic Hepatitis A Vaccines Aged Out 10/12/2015, 03/05/20 15 No longer eligible based on patient's age to complete this topic COVID-19 Vaccine Completed 12/23/2024, , 08/13/2020, Additional history exists Influenza Vaccine Completed 12/23/2024, , 03/05/2015, Additional history exists Meningococcal B Vaccine Aged Out No l onger eligible based on patient's age to complete this topic Pneumococcal Vaccine: Pediatrics (0 to 5 Years) and At-Risk Patients (6 to 49) Years Aged Out No longer eligible based on patient's age to complete this topic RSV under 20 months Aged Out No longe r eligible based on patient's age to complete this topic Rotavirus Vaccines Aged Out No longer eligible based on patient's age to complete this topic Procedures Procedure Name Priority Date/Time Associated Diagnosis Comments POCT INFLUENZA B (ID NOW RAPID MOLECULAR) Routine 12/13/2024 10:51 AM EDT Viral syndrome POCT INFLUENZA A (ID NOW RAPID MOLECULAR) Routine 12/13/2024 10:51 AM EDT Viral syndrome POCT RAPID COVID ANTIGEN Routine 12/13/2024 10:51 AM EDT Viral syndrome from Last 3 Months Results * Influenza B (ID NOW Rapid Molecular) (12/13/2024 10:51 AM EDT) [facility] Influenza B Negative Negative, Indeterminate [facility] Swab 12/13/2024 10:5 1 AM EDT us Stephy Montana MD POINT OF CARE TEST EN TER/EDIT ORDERABLES Final Result Performing Organization Address [facility]/ZIP Co de Phone Number [facility] [address] [place] [phone] * Influenza A (ID NOW Rapid Molecular) (12/13/2024 10:51 AM EDT) [facility] Influenza A Negative Negative, Indeterminate [facility] Swab 12/13/2024 10:5 1 AM EDT us Stephy Montana MD POINT OF CARE TEST EN TER/EDIT ORDERABLES Final Result Performing Organization Address City/[facility]/ZIP Co de Phone Number [facility] [address] [place] [phone] * POCT Rapid COVID Ag (12/13/2024 10:51 AM EDT) Pathologist [facility] Rapid COVID Ag Negative [facility] Swab 12/13/2024 10:5 1 AM EDT us Stephy Montana MD POINT OF CARE TEST EN TER/EDIT ORDERABLES Final Result [facility] [address] [place] [phone] [phone] from Last 3 Months [facility] Care Teams Wood Boatbuilder Apprentice Relationship Specialty Start Date End Date Jazzmine Dockery MD [address] [place] [address] PCP - General Family Medicine 01/10/25
--- OUTSIDE RECORDS SUMMARY | 2025-01-10 16:11 | XMS_ITS | Encounter Summary ---
Author Organization [facility] Address [address] [place] [phone] Phone Care Team Providers Care Electrical Construction Project Manager Name Role Phone Jef Nicole MD Primary Care Provider [phone] Encounter Details Date Type Department Care Team (Late st Contact Info) Description 02/15/2010 Documentation EM Family Medicine [address] [place] [address] Family Medicine, Physician [address] [place], [place] [phone] Social History Tobacco Use Types Packs/Day Years [...] on filedocumented in this encounter Care Teams Electrical Construction Project Manager Relationship Specialty Start Date End Date Jef Nicole MD [address] [place] [address] ASHELY Ortiz [phone] PCP - General 11/04/16 06/14/22 documented as of this encounter
--- OUTSIDE RECORDS SUMMARY | 2025-01-10 16:11 | XMS_ITS | Encounter Summary ---
Author Organization [facility] Address [address] [place] [phone] Phone Care Team Providers Care Surface Water Manager Name Role Phone Jef Nicole MD Primary Care Provider [phone] Encounter Details Date Type Department Care Team (Late st Contact Info) Description 12/10/2015 Documentation EM Family Medicine [address] [place] [address] Family Medicine, Physician [address] [place], [place] [phone] Social History Tobacco Use Types Packs/Day Years [...] on filedocumented in this encounter Care Teams Surface Water Manager Relationship Specialty Start Date End Date Jef Nicole MD [address] [place] [address] ASHELY Ortiz [phone] PCP - General 11/04/16 06/14/22 documented as of this encounter
--- OUTSIDE RECORDS SUMMARY | 2025-01-10 16:11 | XMS_ITS | Encounter Summary ---
Author Organization [employer] Address [address] [place] [address] Care Team Providers Care Supervisor Riveting Name Role Phone Unavailable Primary Care Provider Unavailabl e Encounter Details Date Type Department Care Team (Latest Contact Info) Description 01/09/2025 Travel Social History Tobacco Use Types Packs/Day Years Used Date Smoking Tobacco: Never Assessed Depression Answer Date Recorded Patient Health Questionnaire-9 Score 4 01/10/2025 Patient Health Questionnaire-9 Score 4 01/10/2025 Last PHQ-9: Questionnaire Data Not on file 1 Housing Stability Answer Date Recorded What is your housing situation today? I have hbarti mena 01/01/[address] you [...] AM EDT documented as of this encounter Plan of Treatment Not on file documented as of this encounter Visit Diagnoses Not on filedocumented in this encounter
--- OUTSIDE RECORDS SUMMARY | 2025-01-10 16:11 | XMS_ITS | Clinical Summary ---
Author Organization [facility] Address [address] [place] [phone] Phone Care Team Providers Care Daycare Director Name Role Phone Unavailable Primary Care Provider Unavailabl e Immunizations Immunization Administration Dates Next Due DTP 06/25/1995,04/26/1995,02/23/1995 DTaP 5 06/01/1999,07/24/1996 H1N1 01/14/2009 HPV, Quadrivalent 01/06/2011,09/06/2010,07/06/19 11 Hep A, Adult 10/12/2015,03/05/2015 Hep B, ped/adol 06/25/1995,01/24/1995,1994 Hib (PRP-T) 07/24/1996, 6,04/26/1995, 995 IPV 06/01/1999, 6,04/26/1995, 995 Influenza Split 12/19/2012,07/05/2010,01/30/2001 Influenza, injectable, quadrivalent 03/05/2015 Influenza, injectable, trivalent 12/11/2008,1210/2007,01/30/2001 MMR 06/01/1999,11/26/1995 Meningococcal Conj (Menactra) MCV4P 03/05/2015,0 06/28/2007 Tdap 06/28/2007 Varicella 06/28/2007,02/10/1997 Family History Relation Name Status Comments Cousin Cousin: Autism Father Father: Unknown Half-Sister Alive Half sister (M) : ADD Mother Alive Mother: Arthiri tis, herniated disc, Obesity, Migraines Other Family history of Asthma, Family history of cancer, skin, No family history of Sudden /[place] under age 55, Family history of CVA (Stroke), No family history of Heart disease Social History Tobacco Use Types Packs/Day Years Used Date Smoking Tobacco: Never Comments:Never smoker Sex and Gender Information Value Date Recorded Sex Assigned at Not on file Legal Sex Male 5:09 PM EDT Gender Identity Not on file Sexual Orientation Not on file Last Filed Vital Signs Vital Sign Reading Time Taken Comments Blood Pressure 129/71 10/12/2015 12:00 AM EDT Pulse 87 10/12/2015 12:00 AM EDT Temperature 37.9 C (100.3 F) 10/12/2015 12:00 AM EDT Respiratory Rate - - Oxygen Saturation - - Inhaled Oxygen Concentration - - Weight 109 kg (241 lb) 10/12/2015 12:00 AM EDT Height 161.3 cm (5' 3.5 ) 03/05/2015 12:00 AM ES T Body Mass Index 42.02 03/05/2015 12:00 AM EST Plan of Treatment Health Maintenance Due Date Last Done Comments DTaP,Tdap,and Td Vaccines (7 - Td or Tdap) 06/27/2017 06/28/2007, 06/01/1999, 07/24/1996, Additional history exists Influenza Vaccines (#1) 2024 03/05/20 15, 12/19/2012, 07/05/2010, Additional history exists COVID-19 Vaccine ( season) 2024 Hepatitis B Vaccines Completed 06/25/1995, 01/24/1995, 1994 HIB Vaccines Completed 07/24/1996, 05/27, 04/26/1995, Additional history exists IPV Vaccines Completed 06/01/1999, 05/27, 04/26/1995, Additional history exists MMR Vaccines Completed 06/01/1999, 11/26/1995 Varicella Vaccines Completed 06/28/2007, 02/10/1997 HPV Vaccines Completed 01/06/2011, 08/25, 07/05/2010 Meningococcal Vaccine Aged Out 03/05/2015, 008 No longer eligible based on patient's age to complete this topic Hepatitis A Vaccines Aged Out 10/12/2015, 03/05/20 15 No longer eligible based on patient's age to complete this topic Men B Vaccine Aged Out No longer elig ible based on patient's age to complete this topic Pneumococcal Vaccine Aged Out No long er eligible based on patient's age to complete this topic
--- OUTSIDE RECORDS SUMMARY | 2025-01-10 16:11 | XMS_ITS | Encounter Summary ---
Author Organization [employer] Address [address] [place] [address] Care Team Providers Care Procurement Professional Name Role Phone Jazzmine Dockery MD Primary Care Provider [phone] Encounter Details Date Type Department Care Team (Latest Contact Info) Description 01/10/2025 Travel Social History Tobacco Use Types Packs/Day Years Used Date Smoking Tobacco: Never Smokeless Tobacco: Never Alcohol Use Standard Drinks/Week Comments Never 0 [...] AM EDT documented as of this encounter Functional Status * Over the [...] Assessment Author Several days 01/10/2025 1:05 PM EDT Jennifer Conde MA * Feeling tired or having little energy Answer Date of Assessment Author Several days 01/10/2025 1:05 PM EDT Jennifer Conde MA * Poor appetite or overeating Answer Date of Assessment Author Several days 01/10/2025 1:05 PM EDT Jennifer Conde MA * Feeling bad about yourself - or that you are a failure or have let yourself or your family down Answer Date of Assessment Author Not at all 01/10/2025 1:05 PM EDT Jennifer Conde MA * Trouble concentrating on things, such [...] 1:05 PM EDT Jennifer Conde MA * Thoughts that you would be better off or hurting yourself in some way Answer Date of Assessment Author Not at all 01/10/2025 1:05 PM Jennifer Caruso MA * Patient Health Questionnaire-9 Score Answer Date of Assessment Author 4 01/10/2025 1:05 PM FERNYT Jennifer Conde MA * How difficult have these problems [...] co ntrol worrying 1 01/10/2025 1:05 PM FERNYT Jennifer Conde MA Worrying too much about diff erent things 1 01/10/2025 1:05 PM EDT Jennifer Conde MA Trouble relaxing 0 01/10/2025 1:05 PM EDT Jennifer Willis MA Being so restless that it is hard to sit still 0 01/10/2025 1:05 PM FERNYT Jennifer Conde MA Becoming easily annoyed or irritable 0 01/10/2025 1:05 PM FERNYT Jennifer Conde MA Feeling afraid as if somethi ng awful might happen 0 01/10/2025 1:05 PM EDT Jennifer Conde MA GOPI-7 Total Score 2 01/10/2025 1:05 PM EDT Jennifer Conde MA documented as of this encounter Plan of Treatment Not on file documented as of this encounter Visit Diagnoses Not on filedocumented in this encounter Additional Health Concerns Assessment Noted Time PHQ-9 Depression Total Score: 4 01/11/20 1:05 PM EDT documented as of this encounter Care Teams Procurement Professional Relationship Specialty Start Date End Date Jazzmine Dockery MD [address] [place] [address] [place] [address] PCP - General Family Medicine 01/10/25 documented as of this encounter
--- OUTSIDE RECORDS SUMMARY | 2025-01-10 16:11 | XMS_ITS | Encounter Summary ---
Author Organization [facility] Address [address] [place] [phone] Phone Care Team Providers Care Product Management Consultant Name Role Phone Jef Nicole MD Primary Care Provider [phone] Encounter Details Date Type Department Care Team (Late st Contact Info) Description 11/11/2010 Documentation EM Family Medicine [address] [place] [address] Family Medicine, Physician [address] [place], [place] [phone] Social History Tobacco Use Types Packs/Day Years [...] on filedocumented in this encounter Care Teams Product Management Consultant Relationship Specialty Start Date End Date Jef Nicole MD [address] [place] [address] ASHELY Ortiz [id number] PCP - General 11/04/16 06/14/22 documented as of this encounter
[2025-01-10 16:15] LABS: Hematocrit 39.6 % (42.0-52.0); Hemoglobin 12.4 g/dl (14.0-18.0); Imm Gran Abs Auto 0.06 X10*3/uL (0.00-0.03); Imm Gran Pct Auto 0.6 % (0.0-0.4); Lymphocytes Absolute Auto 2.5 X10*3/uL (1.2-4.9); Mean Corpuscular HGB Conc 31.3 g/dl (31.0-36.0); Mean Corpuscular Hemoglobin 26.0 pg (27.0-33.0); Mean Corpuscular Volume 83.0 fL (80.0-98.0); NRBC Abs Auto 0.000 X10*3/uL (0.0-0.012); NRBC Pct Auto 0.0 /100WBC (0.0-0.2); Platelet Count 235 X10*3/uL (160-400); Red Blood Count 4.77 X10*6/uL (4.60-5.80); White Blood Count 10.6 X10*3/uL (4.8-10.8)
[2025-01-10 17:00] LABS: Alanine Aminotransferase 27 U/L (0-40); Albumin Level 3.9 g/dL (3.5-5.0); Alkaline Phosphatase 62 U/L (39-117); Anion Gap 13 (12-20); Aspartate Amino Transferase 26 U/L (5-37); Blood Urea Nitrogen 11 mg/dL (9-16); Calcium 8.8 mg/dL (8.4-10.2); Carbon Dioxide 28 mmol/L (22-29); Chloride 103 mmol/L (96-108); Cholesterol 147 mg/dL (<200); Estimated Glomerular Filt Rate > 60; HDL Cholesterol 33 mg/dL (>40); Potassium 4.0 mmol/L (3.3-5.1); Sodium 140 mmol/L (135-145); Total Protein 8.2 g/dL (6.5-8.0); Triglycerides 180 mg/dL (<150)
== END 2025-01-10 13:44 | disposition home or self-care (01) ==
LOC: HO.HHCL 13:43
PROVIDERS: PCP General Practice; Visit Provider General Practice
DX: E66.813 Obesity, class 3 (principal); Z68.42 Body mass index [BMI] 45.0-49.9, adult
CPT/HCPCS: 36415; 80053; 80061; 84443; 85025